=== PATIENT | female | born 1950 | race African-American/Black ===

== ENCOUNTER 2022-09-09 18:58 | Emergency (ER) | payer BC, OTHER ==
[~2022-09-09] VITALS: Ht 165.1 cm; Wt 97.5 kg
[2022-09-09 19:06] VITALS: BP_SYST 138
--- NOTE | 2022-09-09 19:06 | NUR ---
Patient triaged and placed in ER bed 2. Bed placed in lowest position and side rails up. Report given to Jacques ACOSTA for continuity of care. Instructed patient to notify ED staff for any changes in condition or worsening of symptoms while waiting to be seen by a provider. Patient verbalized understanding.
--- NOTE | 2022-09-09 19:20 | NUR ---
PT PRESENTS TO ED WITH 8 OUT 10 HEADACHE FROM YESTERDAY, EXCEDRIN DID NOT WORK TODAY AND CHEST PRESSURE. PT IS AMUBLUATORY, VSS, NAD FAMILY AT BEDSIDE, SAFETY RAILS UP BED LOWEST POSITION.
--- NOTE | 2022-09-09 19:40 | NUR ---
Dr. Marie is at bedside examining the patient.
[2022-09-09] MEDS ORDERED: KETOROLAC TROMETHAMINE 30 MG VIAL IM ONE (19:45)
[2022-09-09 20:12] LABS: BASOPHILS # (AUTO) 0.1 K/uL (0.0-0.2); BASOPHILS % (AUTO) 0.7 % (0.0-2.0); EOSINOPHILS # (AUTO) 0.1 K/uL (0.0-0.4); EOSINOPHILS % (AUTO) 0.8 % (0.0-4.0); HEMOGLOBIN 12.3 g/dL (12.0-16.0); LYMPHOCYTES # (AUTO) 3.6 K/uL (1.0-5.5); LYMPHOCYTES % (AUTO) 37.3 % (20.5-51.5); MEAN CORPUSCULAR HEMOGLOBIN 31 pg (27-31); MEAN CORPUSCULAR HGB CONC 34 % (32-36); MEAN CORPUSCULAR VOLUME 89 fL (79.0-98.0); MONOCYTES # (AUTO) 0.6 K/uL (0.0-1.0); MONOCYTES % (AUTO) 6.2 % (1.7-9.3); NEUTROPHILS # (AUTO) 5.3 K/uL (1.8-7.7); PLATELET COUNT (AUTO) 230 K/uL (130-430); RED BLOOD CELL COUNT(AUTO) 4.03 MIL/uL (4.2-6.2); RED CELL DISTRIBUTION WIDTH 13.4 % (9.0-15.0); WHITE BLOOD COUNT (AUTO) 9.6 K/uL (4.8-10.8)
[2022-09-09 20:21] LABS: ANION GAP 9 (5-15); CALCIUM 7.9 mg/dL (8.4-11.0); CHLORIDE 101 mmol/L (98-107); CREATININE 1.05 mg/dL (0.55-1.30); GLUCOSE 151 mg/dL (70-99); UREA NITROGEN, BLOOD 15 mg/dL (8-21)
[2022-09-09 20:22] LABS: GFR AFRICAN AMERICAN 67 mL/min (>90)
[2022-09-09 20:35] LABS: ALANINE AMINOTRANSFERASE 19 U/L (12-78); ALBUMIN 3.4 g/dL (3.4-4.8); ASPARTATE AMINOTRANSFERASE 17 U/L (10-37); TOTAL BILIRUBIN 0.5 mg/dL (0.0-1.0)
[2022-09-09] MEDS ORDERED: POTASSIUM CHLORIDE 20 MEQ TAB.PRT.SR PO ONE (21:00)
[2022-09-09] MEDS ORDERED: CALCIUM CARBONATE 650 MG TABLET PO ONE (21:00)
[2022-09-09] MEDS ORDERED: IBUP-1969 PO (21:20)
[2022-09-09 21:31] VITALS: BP_SYST 143
--- NOTE | 2022-09-09 21:32 | NUR ---
Patient given written and verbal discharge instructions and verbalizes understanding. ER MD discussed with patient the results and treatment provided. Patient in stable condition. ID arm band removed. Rx of IBUPROFEN given. Patient educated on pain management and to follow up with PMD. Opportunity for questions provided and answered. Medication side effect fact sheet provided.
== END 2022-09-09 21:32 | disposition home or self-care (01) ==
LOC: SED 18:58
DX: G44.209 Tension-type headache, unspecified, not intractable (principal); I10 Essential (primary) hypertension; E87.6 Hypokalemia; Z79.899 Other long term (current) drug therapy
CPT/HCPCS: 99285; 70450; 80053; 85025; 84484; 36415; 93005; 76376; 96372; J1885